=== PATIENT | female | born 1970 | race Hispanic/Latino ===

== ENCOUNTER 2018-12-01 21:43 | Emergency (ER) | payer SELFPAY ==
[2018-12-01 22:06] VITALS: BP 98/74
== END 2018-12-01 23:12 | disposition left against medical advice (07) ==
LOC: ED 21:43
DX: R51 Headache (principal); M54.2 Cervicalgia; Z53.21 Procedure and treatment not carried out due to patient leaving prior to being seen by health care provider
CPT/HCPCS: 93005; 93010